=== PATIENT | male | born 1995 | race Caucasian/White ===

== ENCOUNTER 2016-10-29 09:43 | Emergency (ER) | payer OTHER ==
[~2016-10-29] VITALS: Ht 190.5 cm; Wt 91.8 kg
[~2016-10-29 09:43] MED LIST: NEOM1SUS21 OTR
[2016-10-29 09:48] VITALS: TEMP 36.6; Ht 190.5 cm; Wt 91.8 kg
[2016-10-29] MEDS ORDERED: PROPARACAINE HCL 0.5% OP SOLN 15 ML BTL ONE (10:01)
[2016-10-29] MEDS ORDERED: HYDR-5688 PO (10:49)
--- NOTE | 2016-10-29 10:51 | EMERGENCY ROOM VISIT NOTE ---
History Report prepared by [place]ose: Anuradha Rogers Under the Supervision of: Dr. Dane Gutierrez M.D. First contact with patient: 10:29 Chief Complaint: EYE ASSESSMENT Stated Complaint: WELDING History of Present Illness The patient is a 20 year old male who presents to the Emergency Room with complaints of worsening bilateral eye pain beginning early this morning. 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 He states that yesterday he felt something was in his eye, his thinks some metal could have gotten in the eyes. This morning he experienced the pain and states that he does not feel like anything is in the eyes anymore. He states that he was wearing welding glasses most of the time yesterday. He is experiencing light sensitivity. Source of History: patient Onset: early this morning Position: eye (bilateral) Timing: worsening Note: Patient is experiencing bilateral eye pain, light sensitivity, and describes feeling like an object is in his eyes. Review of Systems All systems have been listed, reviewed, and are negative other than those previously mentioned. Please see Additional Medical History Sheet. Past Medical & Surgical Medical Problems: (1) ESOPHAGEAL REFLUX (2) INFEC OTITIS EXTERNA NOS (3) OTITIS MEDIA NOS Family History Patient reports no known family medical history. Social History Smoking Status: Never Smoker Smokeless Tobacco Use: No Marital Status: single Housing Status: lives with family Occupation Status: employed Current/Historical Medications Scheduled PRN Hydrocodone/Acetaminophen 5MG/325MG ([place] 5MG/325MG), 1-2 TABLETS PO Q4 PRN for severe pain Allergies Coded Allergies: No Known Allergies (Unverified , 10/29/16) Physical Exam Vital Signs Date Time Temp Pulse Resp B/P Pulse Ox O2 Delivery O2 Flow Rate FiO2 10/29/16 11:12 52 16 138/83 98 Room Air 10/29/16 09:48 36.6 76 18 141/88 97 Room Air Right Eye Acuity: 20/200 Left Eye Acuity: 20/200 Physical Exam GENERAL: Patient awake, alert, in moderate distress, oriented x 3. Patient follows commands. Patient does not appear toxic. Patient is adequately hydrated and well-nourished. Patient is wearing sunglasses. SKIN: No erythema, pallor, cyanosis or rash HEENT: Normal head, pupils equal, reactive to light and accommodation. Patient has slight injection of sclera bilaterally. Ears normal. Oral cavity and posterior pharynx appear normal. Neck: Without adenopathy, no neck vein distention. LUNGS: Clear to auscultation. No wheezes, no rales, no rhonchi. HEART: No murmurs. No gallops. No rubs ABDOMEN: No masses, no rebound, no hepatomegaly or splenomegaly. EXTREMITIES: No signs of trauma. No pedal or pretibial edema. No calf or thigh tenderness. NEUROLOGIC: Cranial nerves II-XII within normal limits. No gross motor sensory function deficits. Medical Decision & Procedures Medications Administered Medications (Trade) Dose Ordered Sig/Valdo Route Start Time Stop Time Status Last Admin Dose Admin Proparacaine HCl (Alcaine 0.5% Oph Soln) 225 drops STK-MED ONCE .ROUTE 10/29/16 10:01 10/29/16 10:02 DC 10/29/16 10:01 225 DROPS Acetaminophen/ Hydrocodone Bitart ([place] 5/325 Tab) 2 tab ONE ONCE PO 10/29/16 11:00 10/29/16 11:01 DC 10/29/16 11:11 2 TAB Procedure Slit Lamp Examination Indication:Severe pain bilaterally. Both eyes were prepped with topical proparacaine. Slit lamp examination was performed in the standard fashion. Cornea appeared slight generalized florescence brass pickler but no foreign bodies or abrasions/lacerations noted. Anterior chamber clear. Scleral injection slight bilaterally present. No discharge present. Fluorescein examination performed and revealed slight edematous cornea. No foreign bodies noted. Negative Irving sign. The patient tolerated the procedure well without complication. ED Course 1030: Past medical records reviewed. The patient was evaluated in room B5. A complete history and physical examination was performed. 1035: See procedure note for Slit Lamp Examination. 1054: Upon reevaluation, the patient appeared to have improvement of his symptoms. I discussed today's findings with him. He verbalized agreement of the treatment plan. He was discharged home. Medical Decision Nurses notes reviewed. Medical history sheet reviewed. Differential diagnosis includes but is not limited to: cornea abrasion, welders arc burn, or foreign body. Examination reveals mild uptake in both corneas but no definite laceration, abrasion or foreign bodies. Exam is consistent with fitter/welder's arc burn. Patient was given a prescription for hydrocodone. He was encouraged to keep his eyes closed as much as possible. Patient is to have follow-up in 2-3 days if symptoms have not completely resolved. Patient was strongly encouraged to wear eye protection goggles in the future. [place] Drug Monitoring Program Search Results: patient reviewed within database (No information available) Impression Primary Impression: Welders' keratitis of both eyes Scribe Attestation The scribe's documentation has been prepared under my direction and personally reviewed by me in its entirety. I confirm that the note above accurately reflects all work, treatment, procedures, and medical decision making performed by me. Departure Information Dispostion Home / Self-Care Prescriptions Hydrocodone/Acetaminophen 5MG/325MG ([place] 5MG/325MG) Tab 1-2 TABLETS PO Q4 Y for severe pain, #15 TAB PRN PAIN Prov: Dane Gutierrez M.D. 10/29/16 Referrals No Doctor, Assigned (PCP) Forms HOME CARE DOCUMENTATION FORM, IMPORTANT VISIT INFORMATION, WORK / SCHOOL INSTRUCTIONS Patient Instructions ED Keratitis UV, My [facility] Additional Instructions REST 1-2 hydrocodone every 4 hours as needed for moderate to severe pain. Do not drive or operate machinery while taking hydrocodone. Your eyes should be rechecked here or by an chain offbearer in 2-3 days if symptoms have not completely resolved.
[2016-10-29] MEDS ORDERED: HYDROCODONE/ACETAMOPHEN 5/325MG TAB PO ONE (11:00)
[2016-10-29 11:12] VITALS: BP 138/83; PULSE 52; O2SAT 98
== END 2016-10-29 12:03 | disposition home or self-care (01) ==
LOC: C.EDB 09:44
DX: H16.133 Photokeratitis, bilateral (principal); K21.9 Gastro-esophageal reflux disease without esophagitis

== ENCOUNTER 2016-12-21 22:06 | Emergency (ER) | payer OTHER ==
[~2016-12-21] VITALS: Ht 190.5 cm; Wt 96.3 kg
[~2016-12-21 22:06] MED LIST changes: +HYDR-5688 PO; -NEOM1SUS21 OTR
[2016-12-21 22:08] VITALS: BP 129/71; PULSE 69; TEMP 36.7; O2SAT 99; Ht 190.5 cm; Wt 96.3 kg
[2016-12-21] MEDS ORDERED: AMOXICILLIN 500 MG CAP PO STA (22:25)
[2016-12-21] MEDS ORDERED: CIPRO 0.2%/HYDROCORTISONE 1% OTIC SUSP 10 ML BTL OT STA (22:25)
[2016-12-21] MEDS ORDERED: AMOX500T3 PO (22:46)
--- NOTE | 2016-12-21 22:47 | EMERGENCY ROOM VISIT NOTE ---
ED Visit Note First contact with patient: 22:12 CHIEF COMPLAINT: Earache HISTORY OF PRESENT ILLNESS: This 20-year-old male patient presents to the emergency department ambulatory and states they have had a left sided earache for the past 2 days. The pain is moderate, and is gradually increasing. They have noticed swelling and tenderness around the ear canal and pain below the ear on the upper neck. The pain is rated as sharp and and 9/10. The patient has not been swimming recently. The patient reports a history of ear problems, stating he has had both middle and outer ear infections. The patient has not had other URI symptoms. The patient has not had a fever. The patient has taken no medication for relief of the pain. REVIEW OF SYSTEMS: A 6 system review of systems was completed with positives and pertinent negatives listed in the HPI. ALLERGIES: No known drug allergies MEDICATIONS: No chronic medications PMH: No significant past medical history. SOCIAL HISTORY: The patient lives locally with family. Nonsmoker. PHYSICAL EXAM: Vital Signs: Reviewed Nurse's notes, vital signs stable. GENERAL : This is a 20-year-old male, in no acute distress, non toxic in appearance, well developed, well nourished. SKIN: Normal. MOUTH: The pharynx is normal in appearance and the tonsils are not enlarged. The airway is patent. There are no exudates over the tonsils. EARS: The left external auditory canal is swollen and inflamed and there is positive tragal tenderness. The tympanic membrane is mildly injected with pus like material behind the tympanic membrane. The right tympanic membrane is pearly hoyt without erythema or bulging and the external auditory canal is clear. HEART: Regular rate and rhythm without murmurs gallops or rubs. LUNGS: Clear to auscultation bilaterally without wheezes, rales or rhonchi. No dullness to percussion. No accessory muscle use. No retractions. ED COURSE: I examined the patient. He appears to have both an otitis externa and otitis media. Be placed on ciprofloxacin drops and amoxicillin. Conservative measures were discussed. He was encouraged to follow-up with his primary care provider for a recheck as needed. He verbalized understanding of my assessment and treatment plan and was discharged home in good condition. Medication reconciliation: I attest that I have personally reviewed the patient 's current medication list. Blood pressure screening: Patient was found to have normal blood pressure on screening and does not require follow-up. DIAGNOSIS: Acute left otitis externa and otitis media Problem List Medical Problems: (1) ESOPHAGEAL REFLUX Status: Chronic (2) INFEC OTITIS EXTERNA NOS Status: Chronic (3) OTITIS MEDIA NOS Status: Chronic Current/Historical Medications Scheduled Amoxicillin (Amoxil), 500 MG PO TID Allergies Coded Allergies: No Known Allergies (Unverified , 12/21/16) Vital Signs Date Time Temp Pulse Resp B/P (MAP) Pulse Ox O2 Delivery O2 Flow Rate FiO2 12/21/16 22:08 36.7 69 20 129/71 99 Room Air Medications Administered Medications (Trade) Dose Ordered Sig/Valdo Route Start Time Stop Time Status Last Admin Dose Admin Ciprofloxacin/ Hydrocortisone (Cipro Hc Otic Susp) 3 drops NOW STAT OT 12/21/16 22:25 12/21/16 22:27 DC 12/21/16 22:37 3 DROPS Amoxicillin (Amoxil Cap) 500 mg NOW STAT PO 12/21/16 22:25 12/21/16 22:27 DC 12/21/16 22:37 500 MG Departure Information Impression Primary Impression: Otitis externa Additional Impression: Otitis media Dispostion Home / Self-Care Condition GOOD Prescriptions Amoxicillin (AMOXIL) 500 Mg Tab 500 MG PO TID for 7 Days, #21 TAB Prov: Norma Mitchell .MARILYN 12/21/16 Referrals No Doctor, Assigned (PCP) Patient Instructions [facility] Additional Instructions Amoxicillin as prescribed. Use 3 of the ciprofloxacin drops in the affected ear 2-3 times daily for the next 5-7 days or until symptoms resolve. For pain control, you can use the following cqsx-stm-epmndiv medicines (if >12 yo): - Regular strength (325mg/tab) Tylenol (acetaminophen) 2 tabs every 4-6 hours as needed. Do not exceed 12 tablets in a 24 hour period. Avoid taking more than 4 grams (4000 mg) of Tylenol per day. This includes any other sources of acetaminophen you may take on a regular basis. - Regular strength (200 mg/tab) Advil (ibuprofen) 1-2 tabs every 4-6 hours as needed. Do not exceed a dose of 3200 mg per day. Follow-up with your primary care provider for a recheck. Return here for any worsening of your condition or new/concerning symptoms. Problem Qualifiers Primary Impression: Otitis externa
== END 2016-12-21 22:53 | disposition home or self-care (01) ==
LOC: C.EDB 22:07 → C.EDC 22:53
DX: H66.92 Otitis media, unspecified, left ear (principal); H60.502 Unspecified acute noninfective otitis externa, left ear; K21.9 Gastro-esophageal reflux disease without esophagitis

== ENCOUNTER 2025-04-22 21:32 | Inpatient (IN) ==
[2025-04-22 22:03] LABS: Hematocrit (blood only) 37.9 % (42.0-52.0); Hemoglobin 13.8 g/dL (14.0-18.0); Immature Granulocytes # (auto) 0.01 K/uL (0.01-0.20); Immature Granulocytes % (auto) 0.1 %; Mean Corpuscular Hemoglobin 33.3 pg (25.0-34.0); Mean Corpuscular Volume 91.5 fL (80.0-100.0); Platelet Count 263 K/uL (130-400); RDW Standard Deviation 45.8 fL (36.4-46.3); Red Blood Count 4.14 M/uL (4.70-6.10); White Blood Count 7.16 K/ul (4.8-10.8)
[2025-04-22 22:22] LABS: Alanine Aminotransferase 80.0 U/L (7-52); Albumin Globulin Ratio 1.5 (0.9-2); Albumin Level 4.8 gm/dl (3.4-5.0); Alkaline Phosphatase 64.0 U/L (34-104); Anion Gap 9.0 (3-11); Bilirubin,Total 0.5 mg/dl (0.2-1.0); Blood Urea Nitrogen 25.0 mg/dl (6-23); Calcium 9.8 mg/dl (8.6-10.3); Carbon Dioxide 23.0 mmol/L (21-32); Chloride 103.0 mmol/L (98-107); Creatinine Clr Calc Pharmacy 124.2 ml/min; Globulin 3.3 gm/dl (2.5-4.0); Glucose 115.0 mg/dl (70-99(Fasting)); Potassium 3.7 mmol/L (3.5-5.1); Sodium 135.0 mmol/L (136-145); Total Protein 8.1 gm/dl (6.0-8.3)
[2025-04-22 22:30] LABS: Acetaminophen < 3 ug/ml (10-30); Salicylate < 3.0 mg/dl (3.0-30)
[2025-04-22 22:37] LABS: Thyroid Stimulating Hormone 7.355 uIu/ml (0.300-4.500)
[2025-04-22 22:45] LABS: Appearance Urine Clear (Clear); Glucose Urine UA Negative (Negative)
[2025-04-22 23:30] LABS: Amphetamines+Metham, Urine Neg (Neg); MDMA (Ecstacy), Urine Neg (Neg); Marijuana, Urine Neg (Neg)
--- NOTE | 2025-04-22 23:53 | Emergency Department Note ---
Impression & Plan Suicidal behavior admit to [facility] ED Provider Note NAME: RAMA CHAN AGE: 29 SEX: Male INFORMANT: Patient ED PROVIDER(S): Ana Rizo DO CHIEF COMPLAINT: Threats to commit self-harm PLAN: Disposition: admit to [facility] MEDICAL DECISION MAKING: This is a 29-year-old male patient who describes chronic bilateral arm pain and insomnia since January. Patient brought out a firearm tonight and threatened to shoot himself. patient's called 911. Patient has no significant mental health history other than ADHD for which he stopped taking medications a couple of years ago. He has no previous suicide attempts. patient was medically cleared here in the emergency department. He was fully evaluated by the ED psychiatric case maker. He was willing to admit himself voluntarily for inpatient psychiatric care. Patient's blood pressure normalized on its own. He was evaluated by staff from [facility] and they have admitted him to their floor. Care/management discussed with: ED psychiatric case maker Triage Nursing notes: reviewed and agree with them. Vital Signs: reviewed and remarkable for mild hypertension Differential Diagnosis: mood disorder, thought disorder, insomnia, substance abuse HPI: 29 year old Male arrives for evaluation of suicidal ideation. patient has a history of chronic bilateral arm pain which prevents him from sleeping. This started in January of this year. Patient describes having some words with his zara and felt suicidal. He took out a firearm and threatened to kill himself. He admits that lack of sleep makes everything seem worse. He denies feeling suicidal in the past. He admits to previous suicide attempts. He has never been admitted to a psychiatric facility before. PAST MEDICAL HISTORY: ADHD, hypertension, hypercholesterolemia, gout, SOCIAL HISTORY: he lives with his family, he had polysubstance abuse in his 20s but has not used any drugs or alcohol in quite some time, he works as a mechanical product engineer HOME MEDICATIONS: See list ALLERGIES: none VITALS: See Below PHYSICAL EXAMINATION: HEENT: Head - normocephalic and atraumatic. Pupils are equal, round, and reactive to light. Extraocular eye muscles are intact, and sclera are anicteric. Nose - moist nasal mucosa without discharge. Mouth - moist buccal mucosa. Oropharynx is nonerythematous and there is no tonsillar exudate or edema noted. Neck: Supple; no Cervical lymphadenopathy. Heart: Regular rate and rhythm. no murmurs appreciated Lungs: Clear to auscultation bilaterally with no wheezes, rales, or rhonchi. Abdomen: Soft, completely nontender, nondistended, with good bowel sounds. There are no palpable pulsatile masses or hepatosplenomegaly. There is no guarding, rigidity, or rebound noted. Extremities: No evidence of cyanosis, clubbing, or edema. There are easily palpable peripheral pulses. Skin: warm and dry with good turgor and no rashes. psych: Patient has a normal affect. He makes good eye contact. He denies any drug or alcohol use at this time. He does admit to making suicidal threats with a firearm. He is willing to admit himself voluntarily for inpatient psychiatric care. Emergency Department course: The patient was evaluated in room A-8. A complete history and physical was performed. Laboratory studies were drawn as above. The patient was felt to be medically cleared. His blood pressure did normalize on its own. The patient is willing to admit himself voluntarily. He was evaluated by staff from [facility] and they have excepted him to their floor. Past Med/Surg History Problem List (Updated 04/23/25 @ 08:03 by Ana Rizo DO) Suicidal behavior (Acute) Otitis externa (Acute) Otitis media (Acute) Medical History Esophageal reflux (01/13/13) No pertinent past medical history Surgical History No pertinent past surgical history Family History Other No pertinent family history Social History (System 04/23/25 @ 07:48 by Margot Sherman) Smoking Status: Never smoker Preferred Language: Citizen Of [place] Communication Ability: Effective Juice Tester Required: No Beliefs That Will Affect Care: None Feels Safe at Home: Yes Gender Identity: Male Assistive Devices: Contacts Allergies Allergies Allergy/AdvReac Type Severity Reaction Status Date / Time No Known Allergies Allergy Unverified 04/23/25 07:48 Home Meds Home Medications Medication Instructions Recorded Confirmed [id number]-[id number] acid 400 1 tab PO DAILY 04/10/22 04/10/22 mcg-vit K 20 mcg-lycop 300 mcg tablet allopurinol 100 mg tablet 100 mg PO DAILY 04/23/25 04/23/25 atorvastatin 40 mg tablet 40 mg PO DAILY 04/23/25 04/23/25 losartan 50 mg tablet 50 mg PO DAILY 04/23/25 04/23/25 Previous Rx's Medication Instructions Recorded ondansetron HCl 4 mg tablet 4 mg PO Q8H PRN nausea and 04/10/22 vomiting #20 tabs Results & Data (ED) Vital Signs Vital Signs - 24 hr 04/22/25 21:42 Temperature 36.6 C Temperature Source Oral Pulse Rate 76 Respiratory Rate 18 Respiratory Effort / Characteristics Non-Labored Spontaneous Respiratory Depth Normal Respiratory Pattern Regular Blood Pressure 140/106 H Blood Pressure Mean 117 Pulse Oximetry 100 Oxygen Delivery Method Room Air Sepsis Recent Fever Within 48 Hours No Sepsis New/Unexplained Change in Mental Status N/A Sepsis Action Taken by Nursing No Action Required Laboratory Data 04/22/25 21:45 04/22/25 21:45 Lab Results 04/22/25 04/22/25 Range/Units 21:45 21:52 WBC 7.16 (4.8-10.8) K/ul RBC 4.14 L (4.70-6.10) M/uL Hgb 13.8 L (14.0-18.0) g/dL Hct 37.9 L (42.0-52.0) % MCV 91.5 (80.0-100.0) fL MCH 33.3 (25.0-34.0) pg MCHC 36.4 H (32.0-36.0) g/dL RDW Std Deviation 45.8 (36.4-46.3) fL RDW Coeff of Nina 13.5 (11.5-14.5) % Plt Count 263 (130-400) K/uL MPV 9.1 L (9.4-12.4) fL Immature Gran % (Auto) 0.1 % Neut % (Auto) 52.8 % Lymph % (Auto) 36.7 % [place] % (Auto) 7.1 % Eos % (Auto) 2.5 % Baso % (Auto) 0.8 % Neut # (Auto) 3.77 (1.40-6.50) K/uL Lymph # (Auto) 2.63 (1.20-3.40) K/uL [place] # (Auto) 0.51 (0.11-0.59) K/uL Eos # (Auto) 0.18 (0.00-0.50) K/uL Baso # (Auto) 0.06 (0.00-0.20) K/uL Immature Gran # (Auto) 0.01 (0.01-0.20) K/uL Sodium 135 L (136-145) mmol/L Potassium 3.7 (3.5-5.1) mmol/L Chloride 103 (98-107) mmol/L Carbon Dioxide 23 (21-32) mmol/L Anion Gap 9 (3-11) BUN 25 H (6-23) mg/dl Creatinine 1.03 (0.6-1.4) mg/dl Est Cr Clr Drug Dosing 124.2 ml/min eGFR 99.60 BUN/Creatinine Ratio 24.3 H (10-20) Glucose 115 H (70-99(Fasting)) mg/dl Calcium 9.8 (8.6-10.3) mg/dl Total Bilirubin 0.5 (0.2-1.0) mg/dl AST 38 (13-39) U/L ALT 80 H (7-52) U/L Alkaline Phosphatase 64 (34-104) U/L Total Protein 8.1 (6.0-8.3) gm/dl Albumin 4.8 (3.4-5.0) gm/dl Globulin 3.3 (2.5-4.0) gm/dl Albumin/Globulin Ratio 1.5 (0.9-2) TSH 7.355 H (0.300-4.500) uIu/ml Urine Color Yellow Urine Appearance Clear (Clear) Urine pH 5.5 (4.5-7.5) Ur Specific [place] 1.007 (1.000-1.030) Urine Protein Negative (Negative) Urine Glucose (UA) Negative (Negative) Urine Ketones Negative (Negative) Urine Blood Negative (Negative) Urine Nitrite Negative (Negative) Urine Bilirubin Negative (Negative) Urine Urobilinogen Negative (Negative) Ur Leukocyte Esterase Negative (Negative) Urine Comment Salicylates < 3.0 L (3.0-30) mg/dl Urine Opiates Screen Neg (Neg) Ur Methadone, Qual Neg (Neg) Urine Fentanyl Screen Neg (Neg) Acetaminophen < 3 L (10-30) ug/ml Urine Barbiturates Neg (Neg) Ur Phencyclidine (PCP) Neg (Neg) U Amphetamin/Meth Scrn Neg (Neg) MDMA (Ecstasy) Screen Neg (Neg) U Benzodiazepines Scrn Neg (Neg) Ur Cocaine Metabolite Neg (Neg) U Marijuana (THC) Screen Neg (Neg) Ethyl Alcohol mg/dL < 10.0 (<10.0) mg/dl SARS-CoV-2, RNA, NAAT NEGATIVE (NEGATIVE) Discharge Plan Visit Data Chief Complaint: Mental Health Evaluation ED Provider: Ana Rizo Discharge Problem: Suicidal behavior Patient Disposition: Admitted As Inpatient Condition: Fair Discharge Instructions Interventions: ED Discharge Assessment Last Done: 04/23/25 02:19
[2025-04-23] MEDS ORDERED: ACETAMINOPHEN 325 MG TAB PO PRN (02:32)
[2025-04-23] MEDS ORDERED: BISMUTH SUBSALICYLATE 262 MG CHEW PO PRN (02:32)
[2025-04-23] MEDS ORDERED: ALUMINUM/MAGNESIUM SUSP 30 ML UDC PO PRN (02:32)
[2025-04-23] MEDS ORDERED: MAGNESIUM HYDROXIDE SUSP 30 ML UDC PO PRN (02:32)
[2025-04-23] MEDS ORDERED: SODIUM CHLORIDE 0.65% NA SOLN 45 ML (OCEAN) PRN (02:32)
[2025-04-23] MEDS ORDERED: ATORVASTATIN 40 MG TAB PO SCH (09:00)
[2025-04-23] MEDS ORDERED: LOSARTAN POTASSIUM 50 MG TAB PO SCH (09:00)
--- NOTE | 2025-04-23 09:54 | History & Physical ---
Date of Service April 23, 2025 Impression / Recommendations Impression Patient with severe neuropathic pain with unknown etiology. The pain has caused problems with insomnia. It is highly likely that some of the supplements that the patient is taking have also contributed to insomnia and irritability. Patient provided sufficient information to consider generalized anxiety disorder as a condition that he has had but was never formally diagnosed. Currently presents some depressive symptoms. He is all interested on medications and seems to be downplaying his sadness and mood related symptoms. We discussed running labs today to rule out certain conditions like MTHFR and ankylosing spondylitis given his physical complaints. We also discussed stopping the stimulants and addressing the liver and thyroid function. Patient agreed to this. He may be a good candidate for Cymbalta, but declined offer. (1) Suicidal behavior: (2) Generalized anxiety disorder: Plan The patient was admitted to the [address] [place] [address] inpatient mental health unit on q15 min checks behavioral with suicide precautions for safety. The patient will participate in group, recreational, and milieu therapies and will be offered additional individual and family sessions as clinically appropriate. No medication ordered due to patient refusal Labs ordered Overall, I spent a total of 80 minutes with this case, including review of chart,review of records,direct evaluation of the patient,counseling the patient, interdisciplinary team meeting,risk assessment,and documentation. Suicide Risk Level Suicide Risk Level: High-Moderate (q15 min suicide checks) Risk Factors Assessment Male: Yes : Yes Do You Have Access To A Gun?: Yes Health Problems: Yes Mental Health Diagnoses: Yes Substance Use Disorders: Yes Previous Attempt: No Family History of Suicide: No Previous Psychiatric Hospitalization: No Hopelessness: Yes Protective Factors Assessment : Yes Responsible for Young Children: Yes Employed: Yes ([employer]) Psychiatric History Identifying Data ANA CHAN is a 29-year-old M who currently lives with his , has no history of and was admitted on 04/23/25 01:56 on a 201 voluntary commitment for suicidal attempt. Chief Complaint "I was being stupid." History of Present Illness Patient reported that his symptoms began approximately 4 months ago and worsened last night. He threatened to shoot himself, while holding a gun to gun his hand and his called 911. He explained that the symptoms consistent on arm pain, numbness, tingling sensation that worsens at night. He has seen a neurologist and has been going under several diagnostic studies to determine the cause of her pain. The most recent MRI shows some changes of C3-C4 and patient was scheduled to have an EMG today. Patient indicated that he was prescribed gabapentin for radiculopathy but disliked the effect of the medication and has not been taking it. He is not able to tolerate the discomfort, especially at night. And feels like being unable to sleep has taken a toll causing him to become more irritable and unable to handle normal life stressors. He described poor sleep onset and daytime drowsiness. He has been taking modafinil (not formally prescribed to him) to be able to function during the day. Patient indicated that the arm pain started in 1 arm and has spread to both arms but not the legs. He feels stiff when he wakes up in the morning and loosens up as the day progresses. The stiffness in the morning sometimes prevents him from being able to lift his arms. The numbness and tingling sensation in the arms sometimes increases and transform into burning sensation. Upon further questioning, patient acknowledged having a long history of anxiety. Stated that both his mother and his complained about his constant worrying he minimizes the impact and states "that is normal me" but at the same time acknowledges that he can feel physically tired from working. Patient also shared that at 1 point he saw an evaluation for ADHD and stated that he may have exaggerated his symptoms in order to receive stimulants. Patient shared he has a history of experimentation with drugs but has not used any drugs for many mo nths now. He denied any recent use of alcohol. Patient reported that is precisely the history of drug use and "wasting my time" that has caused him to feel depressed and helpless. He explained that his home needs repairs and he has no energy to do the repairs that in other times he would have gone by himself. This has led to ruminations about failing to go to college and failing to have a career that would provide better financial support for his family. Patient also indicated that he has been worried about his health and using many htlg-njg-ezwohnk supplements including multivitamins, creatine, and others. He also recently started diet (keto) but is unaware of the physical problems that are observable in his admission labs (hypothyroidism, elevated liver enzymes). On exam patient is cooperative and easy to engage. He looks depressed and becomes tearful easily. He minimizes the severity of his anxiety and sadness. Dismisses the impact of his somewhat obsessive approach to supplements he is reluctant to discuss medication treatment for depression and anxiety or pain. Past Psychiatric History Previous Psych History: Patient has no prior history of psychiatric treatment. He reported being diagnosed with ADHD but admits to having exaggerated symptoms in order to be prescribed stimulants at that time. He reported a history of experimenting with multiple drugs in the past. He is not enrolled in outpatient psychiatric treatment or therapy at the current time. Denied history of psychiatric h ospitalizations. Denied history of suicidal attempts. Patient is under the care of Dr. Rhoades, his PCP, and Dr. Jacome, who is a neurologist at [facility] in [place]. Current Psychiatric Diagnosis: Unspecified depressive disorder, substance use disorder Outpatient Services: None Previous Psych Admissions: Denied Do You Have Access To A Gun?: Yes History of Previous Suicide Attempt: No Past Medication Trials: Adderall Allergies Allergy/AdvReac Type Severity Reaction Status Date / Time No Known Allergies Allergy Unverified 04/23/25 07:48 Home Medications Medication Instructions Recorded Confirmed Type xrcxxvab-rmjiykdq-lpzea acid 400 1 tab PO DAILY 04/10/22 04/10/22 History mcg-vit K 20 mcg-lycop 300 mcg tablet ondansetron HCl 4 mg tablet 4 mg PO Q8H PRN nausea and 04/10/22 Rx vomiting #20 tabs allopurinol 100 mg tablet 100 mg PO DAILY 04/23/25 04/23/25 History atorvastatin 40 mg tablet 40 mg PO DAILY 04/23/25 04/23/25 History losartan 50 mg tablet 50 mg PO DAILY 04/23/25 04/23/25 History Family History Family History of: Doesn't Know Alcohol History Hx of Alcohol Use Over the Past 12 Months: No AUDIT Total Score: 0 Denies alcohol use. Patient reported he experimented with many drugs in his 20s including MJ, amphetamines, ecstasy, LSD, and opiates. Patient reported he used opiates only once and did not like the effect. Denied IV drug use. Smoking Use Have You Smoked or Used Tobacco Products in the Last 30 Days: No tobacco type: cigarettes Smoking Status: Never smoker Substance History Hx of Prescription Med Misuse Over the Past 12 Months: Yes (Abuse of Provigil) Hx of Over the Counter Med Misuse Over the Past 12 Months: No Hx of Inhalent Misuse Over the Past 12 Months: No Hx of Organic Substance Use Over the Past 12 Months: No Hx of Illegal Substances/Street Drug Use Over Past 12 Months: No Problems as a Result of Past Substance Use: None Identified Problems as a Result of Past Substance Use Comments: Hx of significant substance use years ago Personal History Living Arrangements: Home Childhood: Patient reported she he moved to this area when he was 6 years old with his parents and his brother. He completed high school and attended trade school ([employer]). Patient is and has 2 children, ages 3 and 2. Highest Grade Completed: Vocational Training Marital Status: Beliefs That Will Affect Care: None Current Legal Problems: No Hx Legal Problems: No Patient History Medical History Esophageal reflux (01/13/13) No pertinent past medical history Surgical History No pertinent past surgical history Family History Other No pertinent family history Social History Smoking Status: Never smoker Preferred Language: Croatian Communication Ability: Effective Sinker Winder Required: No Beliefs That Will Affect Care: None Feels Safe at Home: Yes Gender Identity: Male Assistive Devices: Contacts Review of Systems Eyes: + corrective lenses; no blind spots, no diplopia, no eye pain and not seeing flashes Ear, Nose, Mouth, Throat: no ear pain, no dry mouth, no sore throat and no neck lump Respiratory: no cough and no dyspnea Cardiovascular: no chest pain and no palpitations Gastrointestinal: no abdominal pain, no bloating, no nausea and no vomiting Genitourinary: no dysuria Musculoskeletal: + radicular pain, + stiffness, + limited range of motion and + body aches Integumentary: no rash and no lesions Neurologic: + loss of sensation, + tingling, + numbn ess and + paresthesia; no headache(s), no abnormal speech and no memory loss Physical Exam Mental Examination: Appearance: Well Groomed Eye Contact: Fleeting Contact Motor Behavior: Unremarkable Speech: Normal Mood: Depressed Affect: Apprehensive and Withdrawn Thought Process: Intact Thought Content: Intact Hallucinations: None Insight: Poor Judgement: Poor Vital Signs (Past 24 Hours): Last Vital Signs Temp 36.4 C L 04/23/25 06:39 Pulse 88 04/23/25 06:39 Resp 20 04/23/25 06:39 BP 133/83 04/23/25 06:39 Pulse Ox 95 04/23/25 06:39 O2 Del Method Room Air 04/23/25 06:39 Exam Statement: A physical exam was performed in the ED by Dr. Rizo for the purposes of medical clearance. I accept that physical as correct and adequate for the purposes of the inpatient physical exam. Results & Data ([facility]) Laboratory Results Laboratory Results - last 24 hr 04/22/25 04/22/25 21:45 21:52 WBC 7.16 RBC 4.14 L Hgb 13.8 L Hct 37.9 L MCV 91.5 MCH 33.3 MCHC 36.4 H RDW Std Deviation 45.8 RDW Coeff of Nina 13.5 Plt Count 263 MPV 9.1 L Immature Gran % (Auto) 0.1 Neut % (Auto) 52.8 Lymph % (Auto) 36.7 [place] % (Auto) 7.1 Eos % (Auto) 2.5 Baso % (Auto) 0.8 Neut # (Auto) 3.77 Lymph # (Auto) 2.63 [place] # (Auto) 0.51 Eos # (Auto) 0.18 Baso # (Auto) 0.06 Immature Gran # (Auto) 0.01 Sodium 135 L Potassium 3.7 Chloride 103 Carbon Dioxide 23 Anion Gap 9 BUN 25 H Creatinine 1.03 Est Cr Clr Drug Dosing 124.2 eGFR 99.60 BUN/Creatinine Ratio 24.3 H Glucose 115 H Calcium 9.8 Total Bilirubin 0.5 AST 38 ALT 80 H Alkaline Phosphatase 64 Total Protein 8.1 Albumin 4.8 Globulin 3.3 Albumin/Globulin Ratio 1.5 TSH 7.355 H Urine Color Yellow Urine Appearance Clear Urine pH 5.5 Ur Specific [place] 1.007 Urine Protein Negative Urine Glucose (UA) Negative Urine Ketones Negative Urine Blood Negative Urine Nitrite Negative Urine Bilirubin Negative Urine Urobilinogen Negative Ur Leukocyte Esterase Negative Urine Comment Salicylates < 3.0 L Urine Opiates Screen Neg Ur Methadone, Qual Neg Urine Fentanyl Screen Neg Acetaminophen < 3 L Urine Barbiturates Neg Ur Phencyclidine (PCP) Neg U Amphetamin/Meth Scrn Neg MDMA (Ecstasy) Screen Neg U Benzodiazepines Scrn Neg Ur Cocaine Metabolite Neg U Marijuana (THC) Screen Neg Ethyl Alcohol mg/dL < 10.0 SARS-CoV-2, RNA, NAAT NEGATIVE Current Inpatient Medications Current Inpatient Medications: Current Inpatient Medications Acetaminophen (Acetaminophen 325 Mg Tab) 650 mg PO Q4H PRN PRN Reason: Headache or Minor Fever Stop: 05/23/25 02:31 Al Hydrox/Mg Hydrox/Simethicone (Aluminum/Magnesium Susp 30 Ml Udc) 30 ml PO Q4H PRN PRN Reason: GI Upset Stop: 05/23/25 02:31 Allopurinol (Allopurinol 100 Mg Tab) 100 mg PO DAILY BROOK Stop: 05/23/25 09:59 Atorvastatin Calcium (Atorvastatin 40 Mg Tab) 40 mg PO QAM BROOK Stop: 05/23/25 09:59 Bismuth Subsalicylate (Bismuth Subsalicylate 262 Mg Chew) 2 tab PO Q30M PRN PRN Reason: Loose Stool/Diarrhea Stop: 05/23/25 02:31 Hydroxyzine HCl (Hydroxyzine Hcl 25 Mg Tab) 50 mg PO HSZ PRN PRN Reason: Insomnia Stop: 05/23/25 02:31 Hydroxyzine HCl (Hydroxyzine Hcl 25 Mg Tab) 25 mg PO Q4H PRN PRN Reason: Anxiety Stop: 05/23/25 02:31 Magnesium Hydroxide (Magnesium Hydroxide Susp 30 Ml Udc) 30 ml PO DAILY PRN PRN Reason: Constipation Stop: 05/23/25 02:31 Quetiapine Fumarate (Quetiapine Fumarate 25 Mg Tablet) 50 mg PO HS PRN PRN Reason: Insomnia Stop: 05/23/25 02:33 Sodium Chloride (Sodium Chloride 0.65% Na Soln 45 Ml ([place])) 1 - 2 sprays NA PRN PRN PRN Reason: Nasal Dryness/Congestion Stop: 05/23/25 02:31
[2025-04-23] MEDS: LOSARTAN POTASSIUM 50 MG TAB PO SCH (10:13)
[2025-04-23] MEDS: ATORVASTATIN 40 MG TAB PO SCH (10:13)
[2025-04-23 15:42] LABS: Creatine Kinase 228.0 U/L (30-223)
[2025-04-23 15:57] LABS: Thyroid Stimulating Hormone 1.409 uIu/ml (0.300-4.500)
--- NOTE | 2025-04-24 09:46 | Psychiatric Progress Note ---
Date of Service April 24, 2025 Impression / Recommendations Impression Patient with severe neuropathic pain with unknown etiology. The pain has caused problems with insomnia. It is highly likely that some of the supplements that the patient is taking have also contributed to insomnia and irritability. Patient provided sufficient information to consider generalized anxiety disorder as a condition that he has had but was never formally diagnosed. Currently presents some depressive symptoms. He is all interested on medications and seems to be downplaying his sadness and mood related symptoms. We discussed running labs today to rule out certain conditions like MTHFR and ankylosing spondylitis given his physical complaints. We also discussed stopping the stimulants and addressing the liver and thyroid function. Patient agreed to this. A: patient is open to medication recommendations. Will start Cymbalta tonight. The dose recommended is 20 mg twice daily. He was able to ask appropriate questions regarding the medication indications, contraindications, and side effects. No evidence of dangerous behavior today. Safety concerns related to returning home will need to be explored with collateral information. Overall, I spent a total of 30 minutes with this case, including review of chart,review of records,direct evaluation of the patient,counseling the patient,risk assessment,and documentation (1) Suicidal behavior: (2) Generalized anxiety disorder: Plan 04/24/25: Start Cymbalta 20 mg twice daily Continue to monitor mood and behavior Encourage increase water intake to improve hydration 04/23/25: The patient was admitted to the [address] [place] [address] inpatient mental health unit on q15 min checks behavioral with suicide precautions for safety. The patient will participate in group, recreational, and milieu therapies and will be offered additional individual and family sessions as clinically appropriate. No medication ordered due to patient refusal Labs ordered Suicide Risk Level Suicide Risk Level: High-Moderate (q15 min suicide checks) Risk Factors Assessment Male: Yes : Yes Do You Have Access To A Gun?: Yes Health Problems: Yes Mental Health Diagnoses: Yes Substance Use Disorders: Yes Previous Attempt: No Family History of Suicide: No Previous Psychiatric Hospitalization: No Hopelessness: Yes Protective Factors Assessment : Yes Responsible for Young Children: Yes Employed: Yes ([employer]) Interval History Identifying Information ANA CHAN is a 29-year-old M who currently lives with his , has no history of and was admitted on 04/23/25 01:56 on a 201 voluntary commitment for suicidal attempt. Chief Complaint "I am ok trying the medication you offered". Review of Systems Notes Patient reported arm discomfort is present but no severe pain during the daytime. Sleep Information Total Hours of Sleep: 10.5 Sleep Comments: Admitted early in shift Meal Information Percent Meal Consumed - Breakfast: 90 Percent Meal Consumed - Lunch: 90 Percent Meal Consumed - Dinner: 90 Subjective Subjective Patient was seen & assessed and interval progress reviewed with nursing and social work. According to staff patient has been isolative. Rated his mood 8-9 out of 10. Refused to sign SUYAPA's for family member's earlier but later agreed to sign SUYAPA for his brother. During the evaluation today, patient was easy to engage. He denied feeling sad but acknowledged having anxiety. Patient told me he gave SUYAPA consent for his brother. When asked if he is feeling anger towards his , patient stated "no of course I am not angry. There are other things going on that is not what happened that night alone. Do I have to spill all the information here." He seemed irritated by my question, but his demeanor soft send when we changed the topic. Patient asked appropriate questions about his lab work that I had ordered yesterday. He was educated about the normalization of the thyroid (TSH) level and the slight elevation of CPK. We discussed how the supplements and modafinil he was taking without medical advice could be causing some of this changes. There is still other labs pending results (MTHFR and HLA-B27). Patient expressed interest in learning some nonmedication approaches to handling anxiety. We discussed medication, and patient had the opportunity to practice a 5-minute meditation with biofeedback gadget (Shop[employer]list) and found the exercises to be helpful. Today he presents as more collaborative, future oriented, and curious about treatment options. He denies suicidal and homicidal ideation plan or intent. Patient agreed to try Cymbalta 20 mg twice daily to assist with anxiety and pain side effects including but not limited to GI, sedation, over-activation, headaches, weight gain, sexual side effects were related to the patient, he verbalized understanding. Physical Exam Mental Examination Appearance: Well Groomed Eye Contact: Fleeting Contact Motor Behavior: Unremarkable Speech: Normal Mood: Anxious Affect: Anxious and Apprehensive (But able to warm up as the interview progressed) Thought Process: Intact Thought Content: Intact Hallucinations: None Insight: Fair Judgement: Fair Vital Signs (Past 24 Hours) Last Vital Signs Temp 36.2 C L 04/24/25 06:14 Pulse 80 04/24/25 06:15 Resp 16 04/24/25 06:14 BP 110/73 04/24/25 06:15 Pulse Ox 95 04/23/25 06:39 O2 Del Method Room Air 04/23/25 06:39 Results & Data ([facility]) Laboratory Results Laboratory Results - last 24 hr 04/23/25 15:10 ESR 5 Total Creatine Kinase 228 H TSH 1.409 Thyroid Antimicrosomal Pending Thyroglobulin Antibody Pending HLA-B27 Pending MTHFR Mutation Detect Pending MTHFR Interpretation Pending Current Inpatient Medications Current Inpatient Medications: Current Inpatient Medications Acetaminophen (Acetaminophen 325 Mg Tab) 650 mg PO Q4H PRN PRN Reason: Headache or Minor Fever Stop: 05/23/25 02:31 Al Hydrox/Mg Hydrox/Simethicone (Aluminum/Magnesium Susp 30 Ml Udc) 30 ml PO Q4H PRN PRN Reason: GI Upset Stop: 05/23/25 02:31 Allopurinol (Allopurinol 100 Mg Tab) 100 mg PO DAILY BROOK Stop: 05/23/25 09:59 Last Admin: 04/23/25 10:14 Dose: 100 mg Atorvastatin Calcium (Atorvastatin 40 Mg Tab) 40 mg PO QAM BROOK Stop: 05/23/25 09:59 Last Admin: 04/23/25 10:13 Dose: 40 mg Bismuth Subsalicylate (Bismuth Subsalicylate 262 Mg Chew) 2 tab PO Q30M PRN PRN Reason: Loose Stool/Diarrhea Stop: 05/23/25 02:31 Hydroxyzine HCl (Hydroxyzine Hcl 25 Mg Tab) 50 mg PO HSZ PRN PRN Reason: Insomnia Stop: 05/23/25 02:31 Hydroxyzine HCl (Hydroxyzine Hcl 25 Mg Tab) 25 mg PO Q4H PRN PRN Reason: Anxiety Stop: 05/23/25 02:31 Losartan Potassium (Losartan Potassium 50 Mg Tab) 50 mg PO QAM BROOK Stop: 05/23/25 09:59 Last Admin: 04/23/25 10:13 Dose: 50 mg Magnesium Hydroxide (Magnesium Hydroxide Susp 30 Ml Udc) 30 ml PO DAILY PRN PRN Reason: Constipation Stop: 05/23/25 02:31 Quetiapine Fumarate (Quetiapine Fumarate 25 Mg Tablet) 50 mg PO HS PRN PRN Reason: Insomnia Stop: 05/23/25 02:33 Sodium Chloride (Sodium Chloride 0.65% Na Soln 45 Ml ([place])) 1 - 2 sprays NA PRN PRN PRN Reason: Nasal Dryness/Congestion Stop: 05/23/25 02:31 Mental Health & Subst Abuse Tx Therapist Name of Therapist: None Nut Dehydrator Operator Name of Nut Dehydrator Operator: None
--- NOTE | 2025-04-24 14:37 | Discharge Summary ---
Date of Service April 24, 2025 History of Present Illness Patient reported that his symptoms began approximately 4 months ago and worsened last night. He threatened to shoot himself, while holding a gun to gun his hand and his called 911. He explained that the symptoms consistent on arm pain, numbness, tingling sensation that worsens at night. He has seen a neurologist and has been going under several diagnostic studies to determine the cause of her pain. The most recent MRI shows some changes of C3-C4 and patient was scheduled to have an EMG today. Patient indicated that he was prescribed gabapentin for radiculopathy but disliked the effect of the medication and has not been taking it. He is not able to tolerate the discomfort, especially at night. And feels like being unable to sleep has taken a toll causing him to become more irritable and unable to handle normal life stressors. He described poor sleep onset and daytime drowsiness. He has been taking modafinil (not formally prescribed to him) to be able to function during the day. Patient indicated that the arm pain started in 1 arm and has spread to both arms but not the legs. He feels stiff when he wakes up in the morning and loosens up as the day progresses. The stiffness in the morning sometimes prevents him from being able to lift his arms. The numbness and tingling sensation in the arms sometimes increases and transform into burning sensation. Upon further questioning, patient acknowledged having a long history of anxiety. Stated that both his mother and his complained about his constant worrying he minimizes the impact and states "that is normal me" but at the same time acknowledges that he can feel physically tired from working. Patient also shared that at 1 point he saw an evaluation for ADHD and stated that he may have exaggerated his symptoms in order to receive stimulants. Patient shared he has a history of experimentation with drugs but has not used any drugs for many months now. He denied any recent use of alcohol. Patient reported that is precisely the history of drug use and "wasting my time" that has caused him to feel depressed and helpless. He explained that his home needs repairs and he has no energy to do the repairs that in other times he would have gone by himsel f. This has led to ruminations about failing to go to college and failing to have a career that would provide better financial support for his family. Patient also indicated that he has been worried about his health and using many [id number] supplements including multivitamins, creatine, and others. He also recently started diet (keto) but is unaware of the physical problems that are observable in his admission labs (hypothyroidism, elevated liver enzymes). At the time of admission, he was cooperative and easy to engage. He looked depressed and becomes tearful easily. He minimized the severity of his anxiety and sadness. Dismissed the impact of his somewhat obsessive approach to supplements he is reluctant to discuss medication treatment for depression and anxiety or pain. Physical Exam Mental Examination Appearance: Well Groomed Eye Contact: Maintains Eye Contact Motor Behavior: Unremarkable Speech: Normal Mood: Anxious Affect: Anxious (No evidence of symptoms of depression) Thought Process: Intact Thought Content: Intact Hallucinations: None Insight: Fair (Improved) Judgement: Fair (Improved) Vital Signs (Past 24 Hours) Last Vital Signs Temp 36.2 C L 04/24/25 06:14 Pulse 80 04/24/25 06:15 Resp 16 04/24/25 06:14 BP 110/73 04/24/25 06:15 Pulse Ox 95 04/23/25 06:39 O2 Del Method Room Air 04/23/25 06:39 Constitutional WD/WN, vitals as above Musculoskeletal no cyanosis or clubbing, extremities motor strength 5/5 Neurologic Motor/Sensory: no tremor Principal Diagnosis Generalized anxiety disorder Psychiatric Data See daily stay summary. In short, safety was maintained and the patient was cooperative with care. Medication changes included starting Cymbalta 20 mg twice daily and they tolerated this well. A family session was with his brother on 01/13/2025 and safety plan was completed prior to discharge. Day of Discharge Assessment Today the patient voices readiness for discharge. They note improvement in mood and deny thoughts to harm self or others. Thoughts remain organized and they are improved from admission. There is no evidence of psychosis. They agree to take mediations as prescribed and keep follow-up appointments. They are stable for discharge to outpatient level of care. Transition of Care Transition Of Care Record: was reviewed with the patient Advance Directives Advance Directives Information Provided: Yes Advance Directives: No Mental Health Advance Directive: No Advance Directives on File: No Living Will: No Power of Marketing Proposal Specialist: No Advance Directives Reason:: Declines as Mental Health Visit. Suicide Risk Level Suicide Risk Level: Low (q15 min observation checks) (Educated about removing guns from home) Risk Factors Assessment Male: Yes : Yes Do You Have Access To A Gun?: Yes Health Problems: Yes Mental Health Diagnoses: Yes Substance Use Disorders: Yes Previous Attempt: No Family History of Suicide: No Previous Psychiatric Hospitalization: No Hopelessness: Yes Protective Factors Assessment : Yes Responsible for Young Children: Yes Employed: Yes (auto parts delivery driver) Total Time Total Time Spent: Greater Than 30 Minutes Discharge Data Lab Results 04/22/25 04/22/25 04/23/25 21:45 21:52 15:10 WBC 7.16 RBC 4.14 L Hgb 13.8 L Hct 37.9 L MCV 91.5 MCH 33.3 MCHC 36.4 H RDW Std Deviation 45.8 RDW Coeff of Nina 13.5 Plt Count 263 MPV 9.1 L Immature Gran % (Auto) 0.1 Neut % (Auto) 52.8 Lymph % (Auto) 36.7 [place] % (Auto) 7.1 Eos % (Auto) 2.5 Baso % (Auto) 0.8 Neut # (Auto) 3.77 Lymph # (Auto) 2.63 [place] # (Auto) 0.51 Eos # (Auto) 0.18 Baso # (Auto) 0.06 Immature Gran # (Auto) 0.01 ESR 5 Sodium 135 L Potassium 3.7 Chloride 103 Carbon Dioxide 23 Anion Gap 9 BUN 25 H Creatinine 1.03 Est Cr Clr Drug Dosing 124.2 eGFR 99.60 BUN/Creatinine Ratio 24.3 H Glucose 115 H Calcium 9.8 Total Bilirubin 0.5 AST 38 ALT 80 H Alkaline Phosphatase 64 Total Creatine Kinase 228 H Total Protein 8.1 Albumin 4.8 Globulin 3.3 Albumin/Globulin Ratio 1.5 TSH 7.355 H 1.409 Urine Color Yellow Urine Appearance Clear Urine pH 5.5 Ur Specific [place] 1.007 Urine Protein Negative Urine Glucose (UA) Negative Urine Ketones Negative Urine Blood Negative Urine Nitrite Negative Urine Bilirubin Negative Urine Urobilinogen Negative Ur Leukocyte Esterase Negative Urine Comment Salicylates < 3.0 L Urine Opiates Screen Neg Ur Methadone, Qual Neg Urine Fentanyl Screen Neg Acetaminophen < 3 L Urine Barbiturates Neg Ur Phencyclidine (PCP) Neg U Amphetamin/Meth Scrn Neg MDMA (Ecstasy) Screen Neg U Benzodiazepines Scrn Neg Ur Cocaine Metabolite Neg U Marijuana (THC) Screen Neg Ethyl Alcohol mg/dL < 10.0 SARS-CoV-2, RNA, NAAT NEGATIVE Hospital Course (1) Suicidal behavior: (2) Generalized anxiety disorder: Plan 04/24/25: Start Cymbalta 20 mg twice daily Encourage increase water intake to improve hydration T recommended to stop eam had made the decision after family meeting with brother the patient achieved readiness for discharge. Discharged today Ggqm-uwg-noeykzy medications and supplements continue follow-up with neurology There are labs pending result on discharge including MTHFR and HLA-B27 04/23/25: The patient was admitted to the [address] [place] [address] inpatient mental health unit on q15 min checks behavioral with suicide precautions for safety. The patient will participate in group, recreational, and milieu therapies and will be offered additional individual and family sessions as clinically appropriate. No medication ordered due to patient refusal Labs ordered Mental Health & Subst Abuse Tx Therapist Name of Therapist: Dr. Martha Rivera Therapist's Date of Therapist Appointment: 05/05/25 Time of Therapist Appointment: 12:00 PM Air Bag Builder Name of Air Bag Builder: None Discharge Plan Discharge Items Patient Disposition: Home - Self-Care Reason For Visit: UNSPECIFIED DEPRESSIVE DISORDER,STIMULANT USE DISO Discharge Diagnosis: Generalized anxiety disorder chronic pain Condition on Discharge: Fair Activity: As commented below Activity Comment: As tolerated (follow recommendations of neurology) Non-emergency contact: Primary Care Provider, Psychiatrist and Therapist Call non-emergency contact if: you have any medication questions and your symptoms worsen Follow-up/Referrals: Donovan Lara MD [Primary Care Provider] - Diet: Regular Addtl Attending Provider Instructions: SPECIAL CARE INSTRUCTIONS: 1. Follow through with your scheduled aftercare appointments. If unable to keep an appointment, please call to reschedule. 2. Take your medication only as prescribed. Medication should not be changed or stopped without the approval of your doctor. In the event of worsening symptoms or concerns about side effects, contact your doctor immediately. 3. Utilize new healthy coping skills, anger management skills, and stress management skills learned during your hospitalization. Journal feelings and process them with a support person. Identify stressors or situations that may result in relapse, deterioration or inappropriate behaviors and develop a plan to deal with those issues. 4. If your coping skills are ineffective and you are in crisis, contact your outpatient providers for direction. If unable to reach your providers, please call the [facility] CRISIS LINE AT , go to the [facility] walk-in center at [address], [address], [place], or go to the closest Emergency Room. 5. Avoid alcohol and un-prescribed drugs. 6. You have been provided with the Mental Health Advance Directives Pamphlet for your review. 7. Your condition is stable for discharge to outpatient level of care, but recovery is an ongoing process. Ifthoughts to harm yourself or others return, follow the safety plan developed during your stay. Planning for a safe return home includes securing weapons. Our treatment team recommends weaponsbe removed from the home until your outpatient provider reassesses your progress. In rare cases where the items themselvescannot be removed, guns and ammunitionshould be secured separatelyand keys stored by a reliable personoutside of the home. If you were admitted on an involuntary commitment, the police or other legal authorities may be involved in this process. AFTERCARE APPOINTMENTS: * Please call your insurance company prior to your scheduled appointment to confirm your aftercare providers are covered. Take your insurance information to your appointments. WHO TO CALL AND WHEN: Medical Emergencies: For questions or emergencies related to your hospital stay, please contact the Inpatient Behavioral Health Unit at [phone]. A trucking manager is on-call 26/12 for the Behavioral Health Unit for emergencies At any time you feel your situation is an emergency, you may also call 911 immediately. Stand-Alone Forms: My [facility], Smoking Cessation Medications and DC Order Prescriptions: New duloxetine 20 mg Capsule,Delayed Release(Dr/Ec) 20 mg PO BID 30 Days Qty: 60 0RF Continued ondansetron HCl 4 mg tablet 4 mg PO Q8H PRN (Reason: nausea and vomiting) Qty: 20 0RF losartan 50 mg tablet 50 mg PO DAILY atorvastatin 40 mg tablet 40 mg PO DAILY allopurinol 100 mg tablet 100 mg PO DAILY Discontinued Men's Multivitamin 400-20-300 mcg Tablet 1 tab PO DAILY Discharge Orders: Discharge Order (Routine); Ordered 04/24/25 Ordered By: Ellie Rossi/Other Patient Handouts: Your Body's Response to Anxiety, Suicide Know Self Warnings, RACHEAL Admission Data Admit Date/Time: 04/23/25 01:56 Attending Provider: Ellie Martínez Admit Provider: Ellie Martínez Primary Care Provider: Donovan Lara Other Interventions: Discharge Summary Assessment (RN) Last Done: 04/24/25 15:33 PSY Interdisciplinary Discharge Planning Last Done: 04/24/25 14:42 Coding Level of Care Code 04813 D/C day mgmt > 30 min Diagnoses Suicidal behavior R45.89 Generalized anxiety disorder F41.1
== END 2025-04-24 16:33 | disposition home or self-care (01) | DRG 880 ==
LOC: ED 21:32 → 3S 04-23 01:56 → MERGE 04-23 01:56 → 3S 04-23 02:19